=== PATIENT | female | born 1935 | race Caucasian/White ===

== ENCOUNTER 2017-06-25 08:00 | Outpatient (CLI) | payer MEDICARE, OTHER | END 2017-06-25 08:01 | disposition home or self-care (01) | LOC: BICMRI 08:00 | PROVIDERS: ATTEND Neurological Surgery | DX: M54.16 Radiculopathy, lumbar region (principal); M48.061 Spinal stenosis, lumbar region without neurogenic claudication; M99.53 Intervertebral disc stenosis of neural canal of lumbar region | CPT/HCPCS: 72148 ==

== ENCOUNTER 2017-08-06 12:55 | Outpatient (CLI) | payer MEDICARE, OTHER ==
--- NOTE | 2017-08-06 14:45 | RAD ---
FOUR VIEWS LUMBAR SPINE: Date: 08-06-17 Comparison: None. History: Spondylolisthesis of lumbar region. FINDINGS: There is a mild degree of levoscoliosis of the lumbar spine, centered at L2 vertebral body. Neutral lateral examination demonstrates retrolisthesis at the L2-3 level measuring in the 5-6 mm ran ge. There is anterolisthesis of L4 on L5 measuring approximately 1.6 cm. WITH flexion, the retrolisth esis at L2-3 measures approximately 6 mm and the anterolisthesis of L4 on L5 measures approximately 1 .4 cm. With extension, the retrolisthesis at L2-3 measures approximately 5 mm and the anterolisthesis of L4 on L5 measures approximately 1.5 cm. There is prominent lower lumbar spine facet hypertrophic change, most significant at L3-4, L4-5, and L5-S1. There is atherosclerotic calcification of the abdo rakesh aorta. No acute fracture is seen. There are prominent degenerative endplate changes at L4-5 and to a lesser degree L2-3 and L3-4. IMPRESSION: Multilevel degenerative change noted within the lumbar spine. This includes prominent anterolisthesis of L4 on L5. POS: [facility]
== END 2017-08-06 12:56 | disposition home or self-care (01) ==
LOC: SCSRAD 12:55
PROVIDERS: ATTEND Specialist
DX: M43.16 Spondylolisthesis, lumbar region (principal); M47.816 Spondylosis without myelopathy or radiculopathy, lumbar region
CPT/HCPCS: 72120

== ENCOUNTER 2017-08-21 08:47 | Outpatient (CLI) | payer MEDICARE, OTHER ==
[2017-08-21] MEDS ORDERED: Iopamidol 370 76% 100 ML VIAL ONE (16:52)
== END 2017-08-21 08:48 | disposition home or self-care (01) ==
LOC: BICCT 08:47
PROVIDERS: ATTEND Urology
DX: N28.1 Cyst of kidney, acquired (principal); D73.4 Cyst of spleen; K76.89 Other specified diseases of liver; K82.8 Other specified diseases of gallbladder; D35.02 Benign neoplasm of left adrenal gland; K57.30 Diverticulosis of large intestine without perforation or abscess without bleeding
CPT/HCPCS: 74170

== ENCOUNTER 2017-10-08 08:13 | Outpatient (CLI) | payer MEDICARE, OTHER | END 2017-10-08 08:14 | disposition home or self-care (01) | LOC: BICULT 08:13 | PROVIDERS: ATTEND Surgery | DX: R93.8 Abnormal findings on diagnostic imaging of other specified body structures (principal); K82.8 Other specified diseases of gallbladder; K76.89 Other specified diseases of liver; N28.1 Cyst of kidney, acquired | CPT/HCPCS: 76705 ==

== ENCOUNTER 2017-12-04 17:47 | Emergency (ER) | payer MEDICARE, OTHER ==
[2017-12-04] MEDS ORDERED: Ondansetron HCl/PF 4 MG/2 ML Vial ONE (18:31)
[2017-12-04] MEDS ORDERED: Famotidine 20 MG TAB ONE (18:32)
[2017-12-04 18:33] LABS: Bilirubin Negative (Negative); Blood, Urine Trace (Negative); Glucose, Urine (Dipstick) Negative (Negative); Leukocyte Large (Negative); Nitrite Positive (Negative); Protein, Urine (Dipstick) 30 mg/dL (Neg-Trace); Urobilinogen 0.2 mg/dL (0.2-1.0)
[2017-12-04 18:34] LABS: #Basophils 0.1 thou/uL (0.0-0.2); #Eosinphils 0.1 thou/uL (0.0-0.7); #Lymphocytes 3.4 thou/uL (1.20-3.40); #Monocytes 0.9 thou/uL (0.11-0.59); #Neutrophils 7.3 thou/uL (1.40-6.50); %Basophils 0.6 % (0.0-1.0); %Eosinophils 0.6 % (0.0-10.0); %Lymphocytes 29.3 % (21.0-51.0); %Monocytes 7.4 % (0.0-10.0); %Neutrophils 62.1 % (42.0-75.0); Hemoglobin 13.8 g/dL (12.0-16.0); Mean Corpuscular Hemoglobin 31.3 pg (27.0-31.0); Mean Corpuscular Volume 89.6 fl (81.0-99.0); Mean Platelet Volume 6.8 fL (7.4-10.4); Platelet Count 180 thou/uL (130-400); RBC Distribution Width 12.2 % (11.5-14.5); White Blood Cell (WBC) Count 11.8 thou/uL (4.8-10.8)
[2017-12-04 18:35] LABS: Clarity Hazy (Clear)
[2017-12-04 18:37] LABS: Bacteria/HPF 3+ HPF (None Seen)
--- NOTE | 2017-12-04 18:48 | RAD ---
TWO VIEWS ABDOMEN UPRIGHT VIEW OF THE CHEST 12/04/17 COMPARISON: None. HISTORY: Abdominal pain that began 7 days ago with possible pancreatitis. FINDINGS: Supine and upright views of the abdomen and upright view of the chest shows a nonspecific, nonobstruc tive bowel gas pattern. No free air or air fluid levels are seen on upright examination. Air is seen to the level of the rectum. No suspicious calcifications are present. The cardiomediastinal silhouette is normal in size. There is no evidence of consolidation, mass, or p leural effusion. IMPRESSION: No evidence of obstruction. POS: [facility]
[2017-12-04 18:50] LABS: ALT (SGPT) 14 U/L (8-55); AST (SGOT) 15 U/L (5-34); Albumin 4.7 g/dL (3.4-4.8); Alkaline Phosphatase 68 U/L (40-150); Anion Gap 18 mmol/L (10-20); BUN (Urea Nitrogen) 11 mg/dL (9.8-20.1); Bilirubin, Total 0.6 mg/dL (0.2-1.2); Calc. Creatinine Clearance 0 mL/min (70-130); Calcium 10.2 mg/dL (7.8-10.44); Carbon Dioxide 22 mmol/L (23-31); Chloride 97 mmol/L (98-107); Estimated GFR-MDRD 65; Globulin 2.7 g/dL (2.4-3.5); Glucose 130 mg/dL (83-110); Lipase 15 U/L (8-78); Potassium 3.4 mmol/L (3.5-5.1); Protein, Total 7.4 g/dL (6.0-8.3); Sodium 134 mmol/L (136-145)
[2017-12-04 18:51] LABS: CKMB 1.1 ng/mL (0-6.6); Troponin I 0.012 ng/mL (< 0.028)
[2017-12-04] MEDS ORDERED: Sodium Chloride 0.9% 100 ML ONE (19:11)
[2017-12-04] MEDS ORDERED: cefTRIAXone\\ROCEPHIN 2 GM VIAL ONE (19:11)
== END 2017-12-04 19:38 | disposition home or self-care (01) ==
LOC: SCSER 17:47
DX: N30.00 Acute cystitis without hematuria (principal); I34.1 Nonrheumatic mitral (valve) prolapse; E03.9 Hypothyroidism, unspecified; K21.9 Gastro-esophageal reflux disease without esophagitis; E78.5 Hyperlipidemia, unspecified; F41.9 Anxiety disorder, unspecified; F32.9 Major depressive disorder, single episode, unspecified; G47.00 Insomnia, unspecified; Z79.899 Other long term (current) drug therapy
CPT/HCPCS: 74022; 80053; 81003; 81015; 82553; 83605; 83690; 84484; 85025; 87077; 87086; 87186; 96365; 96375; J0696; J2405; J7050

== ENCOUNTER 2018-02-28 11:17 | Emergency (ER) | payer MEDICARE, OTHER ==
[2018-02-28 11:35] LABS: Bilirubin Negative (Negative); Blood, Urine Trace (Negative); Clarity Cloudy (Clear); Glucose, Urine (Dipstick) Negative (Negative); Leukocyte Large (Negative); Nitrite Negative (Negative); Protein, Urine (Dipstick) Trace mg/dL (Neg-Trace); Urobilinogen 0.2 mg/dL (0.2-1.0); pH, Urine 6.5 (5.0-9.0)
[2018-02-28 11:47] LABS: Bacteria/HPF 3+ HPF (None Seen); RBC/HPF 0-3 HPF (0-3); Squamous Epithelial 0-3 HPF (0-3)
== END 2018-02-28 12:02 | disposition home or self-care (01) ==
LOC: SCSER 11:17
DX: N30.00 Acute cystitis without hematuria (principal); E03.9 Hypothyroidism, unspecified; K21.9 Gastro-esophageal reflux disease without esophagitis; I10 Essential (primary) hypertension; F41.9 Anxiety disorder, unspecified; F32.9 Major depressive disorder, single episode, unspecified
CPT/HCPCS: 81003; 81015; 99283

== ENCOUNTER 2018-08-12 11:10 | Outpatient (CLI) | payer MEDICARE, OTHER ==
--- NOTE | 2018-08-12 12:53 | CT ---
CT LUMBAR SPINE NONCONTRAST: HISTORY: Lumbar stenosis. Back pain with left leg radiculopathy. Prior surgery. FINDINGS: Images partially showing the abdomen show prominent calcification throughout the arterial structures and hyperdense cysts associated with the cortex of each kidney. Leftward convex rotator scoliotic curvature of the lumbar spine on the coronal images. Degenerative changes of the partially visualized lower thoracic spine. T12-L1: Osteophytosis. Central canal and neural foramina remain patent. L1-L2: Disk space narrowing and minimal degenerative retrolisthesis. Posterior risk bulge and circu mferential degenerative changes. Mild to moderate stenosis of the central canal. Moderate stenosis of each neural foramen. L2-L3: Disk space narrowing and gas disk phenomenon. Minimal degenerative retrolisthesis. Prominen t posterior central disk protrusion and severe circumferential degenerative changes. Very severe francisco nosis of the central canal and each neural foramen. L3-L4: Complete loss of disk space. Mild posterior disk bulge. Circumferential degenerative change s. Severe stenosis of the central canal and each neural foramen, left greater than right. L4-L5: There is 1.3 cm of spondylolisthesis and complete loss of disk space at this level. Gas disk phenomenon. Severe stenosis of the central canal and each neural foramen. Bulky facet osteophytosi s. L5-S1: Disk space narrowing and mild disk bulge. Osteophytosis of each facet. Moderate stenosis of the central canal. Mild stenosis of each neural foramen. IMPRESSION: 1. Prominent multilevel degenerative changes throughout the lumbar spine, as detailed above, includi ng multilevel severe central canal and foraminal stenosis, most severe at the L2-L3 level. 2. Grade 2-3 spondylolisthesis at the L4-L5 level. 3. Atherosclerosis. POS: [facility]
== END 2018-08-12 11:11 | disposition home or self-care (01) ==
LOC: TBSIIMAG 11:10
PROVIDERS: ATTEND Neurological Surgery
DX: M48.061 Spinal stenosis, lumbar region without neurogenic claudication (principal); M48.07 Spinal stenosis, lumbosacral region; M47.816 Spondylosis without myelopathy or radiculopathy, lumbar region; M43.16 Spondylolisthesis, lumbar region; I70.90 Unspecified atherosclerosis
CPT/HCPCS: 72131

== ENCOUNTER 2018-08-25 10:11 | Outpatient (CLI) | payer MEDICARE, OTHER ==
--- NOTE | 2018-08-25 15:09 | CT ---
CT ABDOMEN AND PELVIS WITH AND WITHOUT IV CONTRAST: 08/25/18 HISTORY: Hyperdense renal cyst. COMPARISON: 07/10/17. FINDINGS: There are mild patchy infiltrates in the lung bases. These are new since the last exam. 13 mm cyst in the left lobe of the liver and a 2.2 cm cyst in the superior aspect of the spleen are s table. No calcified gallstones are seen. The pancreas and right adrenal gland are normal. The left ad renal adenoma is stable. No calculi is seen in the kidneys or visualized portions of the ureters. No hydroureteronephrosis is seen. Hyperdense masses in the kidneys are again noted without postcontrast enhancement. The largest on the right measuring 2.8 cm (previously 2.6 cm) and on the left measuring 18 mm. Other low density nonenhancing lesions consistent with cysts are again seen. The largest is on the left measuring 14 mm . Colonic diverticulosis is again seen. There are vascular calcifications without evidence of aneurysma l dilatation of the abdominal aorta. There are degenerative changes in the spine. IMPRESSION: 1. Proteinaceous and simple bilateral renal cysts. 2. Stable splenic and hepatic cysts. 3. Colonic diverticulosis. 4. Stable left adrenal adenoma. POS: [facility]
== END 2018-08-25 10:12 | disposition home or self-care (01) ==
LOC: SCSCT 10:11
PROVIDERS: ATTEND Urology
DX: N28.1 Cyst of kidney, acquired (principal); D73.4 Cyst of spleen; K76.89 Other specified diseases of liver; K57.30 Diverticulosis of large intestine without perforation or abscess without bleeding; D35.02 Benign neoplasm of left adrenal gland
CPT/HCPCS: 36415; 74170; 80048

== ENCOUNTER 2018-09-03 00:22 | Outpatient (CLI) | payer MEDICARE, OTHER ==
[2018-09-03 11:35] LABS: Hemoglobin 12.9 g/dL (12.0-16.0); Mean Corpuscular HGB CONC 32.3 g/dL (32.0-36.0); Mean Corpuscular Hemoglobin 30.8 pg (27.0-31.0); Mean Corpuscular Volume 95.3 fL (78.0-98.0); Mean Platelet Volume 7.3 fL (7.4-10.4); Platelet Count 182 thou/uL (130-400); RBC Distribution Width 12.6 % (11.5-14.5); Red Blood Cell (RBC) Count 4.19 mill/uL (4.20-5.40); White Blood Cell (WBC) Count 14.6 thou/uL (4.8-10.8)
== END 2018-09-03 00:23 | disposition home or self-care (01) ==
LOC: LABBT 00:22
PROVIDERS: ATTEND Neurological Surgery
DX: Z01.818 Encounter for other preprocedural examination (principal); M43.16 Spondylolisthesis, lumbar region
CPT/HCPCS: 85027; 93005; 93010

== ENCOUNTER 2018-09-05 05:43 | Observation (INO) | payer MEDICARE, OTHER ==
[2018-09-03 10:38] VITALS: BMI 25.2
--- NOTE | 2018-09-04 13:56 | HP ---
HISTORY OF PRESENT ILLNESS: Ms. Sanchez is known to me for distant evaluation of her lower back pain and bilateral leg pain. She also has incidentally discovered renal mass on MRI which was performed at the end of 2017 for which she has been following with Urology. She has also been receiving epidural steroid injections with Dr. Rodríguez. Since that time, while they provide mild relief, her pains are still rather profound. Revisiting her MRI scan from [facility], she has critical central canal stenosis at L4-L5 secondary to grade 2 borderline three slip as well as [id number] central canal stenosis at L2-L3. She has reached a point now where she hopes to have this corrected if it is considered to be a reasonable surgical option. She is using a cane and walker to ambulate. Her pain is in L4 distribution mostly on the left, but at times on the right, and she has considerable claudication symptoms. PAST MEDICAL HISTORY: Significant for hypercholesterolemia, chronic pain syndrome, hypertension, headaches, coronary artery disease, renal mass, osteoarthritis, anxiety, seasonal allergies. ALLERGIES: TO ASPIRIN, SULFA DRUGS, TRAMADOL, VALSARTAN. PAST SURGICAL HISTORY: Hysterectomy, bilateral shoulders, left hand, and left foot. CURRENT MEDICATIONS: Levothyroxine, bupropion, carvedilol, omeprazole, amlodipine, temazepam, magnesium. PHYSICAL EXAMINATION: GENERAL: The patient is alert and oriented x3. NEUROLOGIC: Gait is severely slowed and antalgic. She uses a walker to get around. Lower extremity motor exam is normal. There is no major sensory disturbance that I can discern in the bilateral lower extremities. ASSESSMENT: Lumbar radiculopathy and spondylolisthesis. PLAN: Dr. Melgoza met with the patient, reviewed imaging, and advocated for L2-L3 decompression as well as an L4-L5 decompression and fusion. He explained to the patient the risks, benefits, and alternatives to the procedure. The patient expressed understanding and elected to move forward with surgery as discussed. I do believe the patient is mentally competent and capable of making medical decisions for herself. We will move forward with surgery as planned. Job ID: [id number]
[2018-09-05] MEDS ORDERED: Bupivacaine HCl 0.5%/Epinephrine 1:200,000/PF 30 ml Vial ONE (06:18)
[2018-09-05] MEDS ORDERED: Thrombin 5000 UNITS/5 ML VIAL ONE (06:18)
[2018-09-05] MEDS ORDERED: Fentanyl 250 MCG/5 ML VIAL ONE (06:25)
[2018-09-05] MEDS ORDERED: Phenylephrine HCL 10 MG/ML VIAL ONE (09:05)
[2018-09-05] MEDS ORDERED: Fentanyl 100 MCG/2 ML VIAL ONE (10:31)
--- NOTE | 2018-09-05 12:25 | OP ---
DATE OF PROCEDURE: 09/05/2018 [employer]: Isrrael Jaime PA-C INDICATION: Pain. DIAGNOSES: Spondylolisthesis, L4 upon L5 and lumbar stenosis, L2-L3. PROCEDURES PERFORMED: L4-L5 lumbar decompression, facetectomy, posterior lateral instrumented fusion, L2-L3, bilateral hemilaminectomy with decompression. ANESTHESIA: General. DESCRIPTION OF PROCEDURE: The patient was brought into the operating room and placed under general anesthesia. She was flipped from a supine to prone position on the operating room table. A linear incision was planned spanning the L2 through L5. After prepping and draping and after preoperative pause, the incision was created. The underlying tissues were swept away from midline. We first directed our attention to L4-L5, where facetectomy and laminectomy was performed at the L4-L5 segment. After dissecting through scar and spending an extensive amount of time with the decompression, we were able to palpate the pedicles at L4 and L5 which were all set by grade 2 spondylolisthesis. Pedicle screws were then placed within the pedicles bilaterally. An intraoperative CT scan was then performed to confirm appropriate placement of hardware. Rods were then placed across the screw head and final tightened. Allograft and autograft material were placed in the lateral confines of the instrumentation construct. We then redirected our attention to the L2-L3, where bilateral hemilaminectomies were performed at the L2-L3 segment in order to decompress the lateral recesses. The wound was then irrigated. Hemostasis was maintained throughout. The wound was then closed in anatomic layers and a pressure dressing was applied. There were no known procedural complications. Job ID: [id number]
[2018-09-05] MEDS ORDERED: HYDROcodone/Acetaminophen 7.5/325 mg Tablet ONE (13:04)
[2018-09-05] MEDS ORDERED: Rocuronium Bromide 10 MG/ML (10ML VIAL) ONE (13:38)
[2018-09-05] MEDS ORDERED: Ondansetron PF 4 MG/2 ML Vial ONE (13:38)
[2018-09-05] MEDS ORDERED: PHENYLEPHRINE-NS 100 MCG/ML 10 ML SYRINGE ONE (13:38)
[2018-09-05] MEDS ORDERED: Dexamethasone 20 MG/5 ML VIAL ONE (13:38)
[2018-09-05] MEDS ORDERED: Lidocaine 1% PF 5 ML VIAL ONE (13:38)
[2018-09-05] MEDS ORDERED: PROPOFOL 200 MG/20 ML VIAL ONE (13:38)
[2018-09-05] MEDS ORDERED: ePHEDrine 50 MG/ML VIAL ONE (13:38)
[2018-09-05] MEDS ORDERED: Bisacodyl 10 MG SUPP PR PRN (14:03)
[2018-09-05] MEDS ORDERED: HYDROcodone/Acetaminophen 7.5/325 mg Tablet PO PRN (14:03)
[2018-09-05] MEDS ORDERED: tiZANidine HCl 4 MG TAB PO PRN (14:03)
[2018-09-05] MEDS ORDERED: Mag-Al 1200 mg/1200 mg/30 ML UDCUP PO PRN (14:03)
[2018-09-05] MEDS ORDERED: Morphine 4 MG/ML VIAL SLOW IVP PRN (14:03)
[2018-09-05] MEDS ORDERED: Ondansetron PF 4 MG/2 ML Vial IVP PRN (14:03)
[2018-09-05] MEDS ORDERED: Acetaminophen 325 MG TAB PO PRN (14:03)
[2018-09-05] MEDS ORDERED: Non-Formulary Item 1 EACH (Isosorb Dinit/Hydralazine Hcl [Bidil] 1 TABLET) PO SCH (15:00)
[2018-09-05] MEDS: CEFAZOLIN 2 GM in Premix Bag 1 BAG IVPB SCH ×3 (15:45→23:16)
[2018-09-05] MEDS: Sodium Chloride 0.9% 1,000 ML IV SCH (17:03)
[2018-09-05] MEDS: hydrALAZINE 25 MG TAB PO SCH ×2 (17:52→20:28)
[2018-09-05] MEDS: Isosorbide Dinitrate 20 MG TAB PO SCH ×2 (17:52→20:28)
[2018-09-05] MEDS: Carvedilol 25 MG TAB PO SCH (20:27)
[2018-09-05] MEDS ORDERED: ALPRAZolam 0.5 MG TAB PO SCH (21:00)
[2018-09-05] MEDS ORDERED: Ubidecarenone 50 MG CAP PO SCH (21:00)
[2018-09-05] MEDS ORDERED: Pregabalin 25 MG CAP PO SCH (21:00)
[2018-09-05] MEDS ORDERED: Temazepam 15 MG CAP PO SCH (21:00)
[2018-09-06] MEDS ORDERED: Levothyroxine Sodium 75 MCG TAB PO SCH (06:00)
[2018-09-06 08:03] LABS: Band 13 % (5-11); Hemoglobin 8.9 g/dL (12.0-16.0); Lymphocytes 14 % (21-51); MDiff Complete? YES; Mean Corpuscular HGB CONC 33.1 g/dL (32.0-36.0); Mean Corpuscular Hemoglobin 32.4 pg (27.0-31.0); Mean Corpuscular Volume 98.1 fL (78.0-98.0); Mean Platelet Volume 7.2 fL (7.4-10.4); Monocytes 14 % (0-10); Neutrophil 59 % (42-75); Platelet Count 143 thou/uL (130-400); RBC Distribution Width 12.2 % (11.5-14.5); Red Blood Cell (RBC) Count 2.76 mill/uL (4.20-5.40); White Blood Cell (WBC) Count 12.4 thou/uL (4.8-10.8)
[2018-09-06] MEDS ORDERED: Atorvastatin Calcium 10 MG TAB PO SCH (09:00)
[2018-09-06] MEDS ORDERED: buPROPion HCl 100 MG TAB PO SCH (09:00)
[2018-09-06] MEDS ORDERED: Calcium Carbonate 600 MG TAB PO SCH (09:00)
[2018-09-06] MEDS ORDERED: Magnesium Oxide 250 MG TAB PO SCH (09:00)
[2018-09-06] MEDS ORDERED: Amlodipine 10 MG TAB PO SCH (09:00)
[2018-09-06] MEDS: Sodium Chloride 0.9% 1,000 ML IV SCH (09:36)
[2018-09-06] MEDS: hydrALAZINE 25 MG TAB PO SCH ×2 (09:39→15:36)
[2018-09-06] MEDS: Isosorbide Dinitrate 20 MG TAB PO SCH ×2 (09:40→15:36)
[2018-09-06] MEDS: Carvedilol 25 MG TAB PO SCH (09:41)
[2018-09-06] MEDS: HYDROcodone/Acetaminophen 7.5/325 mg Tablet PO PRN ×2 (11:25→15:29)
--- NOTE | 2018-09-06 11:50 | PRG ---
DATE OF SERVICE: 09/06/2018 SUBJECTIVE: Ms. Sanchez is postoperative day 1 from lumbar decompression and fusion. She states her leg symptoms are certainly improved compared to before surgery. She does have some perioperative incisional pain. She is not yet mobilized consistently. We will work on that this morning. She lives at home with her daughter and they have essentially a hospital grade set up already at home. I would be fine with dismissal later today assuming the patient is mobilizing with a rolling walker, tolerating orals and voiding spontaneously. Job ID: [id number]
[2018-09-06 15:58] VITALS: BP 110/64; TEMP 98.4
== END 2018-09-06 16:15 | disposition home or self-care (01) ==
LOC: SDC 05:43 → SURG B 14:25
PROVIDERS: ADMIT Neurological Surgery; ATTEND Neurological Surgery
PROC: 0SG00AJ Fusion of Lumbar Vertebral Joint with Interbody Fusion Device, Posterior Approach, Anterior Column, Open Approach (ICD-10-PCS; principal; 2018-09-05)
PROC: 01NB0ZZ Release Lumbar Nerve, Open Approach (ICD-10-PCS; 2018-09-05)
DX: M43.16 Spondylolisthesis, lumbar region (principal); M48.062 Spinal stenosis, lumbar region with neurogenic claudication; M54.16 Radiculopathy, lumbar region; I10 Essential (primary) hypertension; I25.10 Atherosclerotic heart disease of native coronary artery without angina pectoris; E78.00 Pure hypercholesterolemia, unspecified; G89.4 Chronic pain syndrome; M19.90 Unspecified osteoarthritis, unspecified site; F41.9 Anxiety disorder, unspecified; Z88.6 Allergy status to analgesic agent; Z88.2 Allergy status to sulfonamides; Z88.5 Allergy status to narcotic agent; Z90.710 Acquired absence of both cervix and uterus; Z79.899 Other long term (current) drug therapy; Z98.890 Other specified postprocedural states
CPT/HCPCS: 20930; 20936; 22612; 22840; 63047; 76000; 85025; 96374; 97116; 97139 ×2; 97530 ×2; C1713 ×2; G0378; 36415; J0670; J1100; J2001; J2370; J2405; J2704; J3010; J3490